=== PATIENT | male | born 1965 | race African-American/Black ===

== ENCOUNTER 2017-07-10 15:55 | Emergency (ER) | payer OTHER ==
[~2017-07-10] VITALS: Ht 182.9 cm; Wt 86.2 kg
[2017-07-10] MEDS ORDERED: LISINOPRIL20 MG PO (16:01)
[2017-07-10] MEDS ORDERED: TOBREX5 ML OPHTHALMIC (17:14)
[2017-07-10] MEDS ORDERED: NORCO 5-325 TA1 EACH PO (17:14)
[2017-07-10] MEDS ORDERED: CLONIDINE0.1 PO (17:25)
[2017-07-10 18:33] VITALS: BP 188/122
== END 2017-07-10 18:37 | disposition home or self-care (01) ==
LOC: ER 15:55
DX: S05.92XA Unspecified injury of left eye and orbit, initial encounter (principal); W21.11XA Struck by baseball bat, initial encounter; Y93.64 Activity, baseball; Y92.89 Other specified places as the place of occurrence of the external cause; Y99.8 Other external cause status